=== PATIENT | female | born 1960 | race Caucasian/White ===

== ENCOUNTER 2018-07-02 22:55 | Emergency (ER) | payer BC, OTHER ==
[~2018-07-02] VITALS: Ht 28086.8 cm; Wt 90.9 kg
[~2018-07-02 22:55] MED LIST: HYDR-3686 PO; IBUP-1984 PO; OMEP-84 PO; ZIPR20CA2 PO
[2018-07-02] MEDS ORDERED: LORazepam 1 MG tablet PO ONE (23:20)
[2018-07-03 00:16] LABS: BASOPHILS # (AUTO) 0.1 X10'3 (0-0.2); BASOPHILS % (AUTO) 0.9 % (0-1); EOSINOPHILS # (AUTO) 0.1 X10'3 (0-0.9); EOSINOPHILS % (AUTO) 1.3 % (0-6); HEMATOCRIT 45.4 % (35.0-45.0); HEMOGLOBIN 14.6 g/dl (12.0-16.0); LYMPHOCYTES # (AUTO) 1.7 X10'3 (1.1-4.8); LYMPHOCYTES % (AUTO) 18.1 % (21-51); MEAN CORPUSCULAR HEMOGLOBIN 29.7 PG (27.0-31.0); MEAN CORPUSCULAR HGB CONC 32.2 % (33.0-36.5); MEAN CORPUSCULAR VOLUME 92.2 FL (78-98); MEAN PLATELET VOLUME 9.5 FL (7.4-10.4); MONOCYTES # (AUTO) 0.9 X10'3 (0-0.9); MONOCYTES % (AUTO) 9.4 % (2-12); NEUTROPHILS # (AUTO) 6.4 X10'3 (1.8-7.7); NEUTROPHILS % (AUTO) 70.3 % (42-75); PLATELET COUNT 253 X10'3 (140-440); RED BLOOD COUNT 4.92 X10'6 (4.20-5.60); RED CELL DISTRIBUTION WIDTH 13.8 % (11.5-14.5); WHITE BLOOD COUNT 9.2 X10'3 (4.5-11.0)
[2018-07-03 00:27] LABS: ALANINE AMINOTRANSFERASE 33 U/L (12-78); ALBUMIN 3.9 G/DL (3.4-5.0); ALBUMIN/GLOBULIN RATIO 1.1 (1.1-1.5); ALKALINE PHOSPHATASE 90 IU/L (46-116); ANION GAP 10 (8-16); ASPARTATE AMINO TRANSFERASE 29 U/L (10-37); BLOOD UREA NITROGEN 15 MG/DL (7-18); BUN/CREATININE RATIO 11.9 (6.6-38.0); CALCIUM 9.2 MG/DL (8.5-10.1); CHLORIDE 103 MMOL/L (99-107); CREATININE 1.26 MG/DL (0.40-0.90); GLUCOSE 119 MG/DL (70-104); POTASSIUM 3.8 MMOL/L (3.5-5.1); SODIUM 138 MMOL/L (135-145); TOTAL CARBON DIOXIDE 24.9 MMOL/L (24-32); TOTAL PROTEIN 7.6 G/DL (6.4-8.2); eGFR 44 ML/MIN
[2018-07-03 00:35] LABS: ETHANOL < 0.010 GM/DL (0.0-0.010)
[2018-07-03 00:41] LABS: ACETAMINOPHEN < 2.0 UG/ML (10-30)
[2018-07-03 00:59] LABS: URINE HCG NEGATIVE (NEG)
[2018-07-03 01:02] LABS: CLARITY,URINE CLEAR (Clear); COLOR,URINE YELLOW (Yellow); GLUCOSE, URINE NEGATIVE (Neg); KETONES,URINE NEGATIVE (Neg); LEUKOCYTE ESTERASE ,URINE NEGATIVE (Neg); NITRITES, URINE NEGATIVE (Neg); OCCULT BLOOD,URINE NEGATIVE (Neg); PH,URINE 5.5 (4.8-8.0); PROTEIN,URINE TRACE mg/dl (Neg)
[2018-07-03 01:14] LABS: URINE AMPHETAMINE SCREEN POSITIVE (Neg); URINE BARBITUATE SCREEN NEGATIVE (Neg); URINE BENZODIAZEPINES SCREEN NEGATIVE (Neg); URINE CANNABINOID SCREEN POSITIVE (Neg); URINE COCAINE SCREEN NEGATIVE (Neg); URINE METHADONE SCREEN NEGATIVE (Neg); URINE OPIATE SCREEN NEGATIVE (Neg); URINE PHENCYCLIDINE SCREEN NEGATIVE (Neg)
[2018-07-03 01:15] LABS: UA COLLECTION TYPE STRAIGHT CATH
[2018-07-03 01:16] LABS: BACTERIA,URINE FEW /HPF (Neg); RBC,URINE 0-2 /HPF (0-2); WBC,URINE 0-4 /HPF (0-4)
[2018-07-03 01:17] LABS: MUCUS STRANDS MODERATE /LPF (Neg); SQUAMOUS EPITHELIAL CELL,UR FEW /LPF (FEW)
[2018-07-03] MEDS ORDERED: haloperidol lactate 5mg/ml inj IM ONE (03:00)
[2018-07-03] MEDS ORDERED: LORazepam 2 mg/ml vial IM ONE (03:00)
[2018-07-03] MEDS ORDERED: TOPI100T18 PO (03:24)
[2018-07-03] MEDS ORDERED: ARIP20TA4 PO (03:24)
[2018-07-03] MEDS ORDERED: [UNRECOGNIZED DRUG - OTHER] PO (03:25)
[2018-07-03] MEDS ORDERED: ASPI-1265 PO (03:25)
[2018-07-03] MEDS ORDERED: LORA2TAB96 PO (06:00)
[2018-07-03] MEDS ORDERED: ZIPR20CA2 PO (20:18)
[2018-07-03] MEDS ORDERED: HYDR-3686 PO (20:18)
[2018-07-03] MEDS ORDERED: FURO-149 PO (20:18)
[2018-07-03] MEDS ORDERED: OMEP10SU2 PO (20:18)
[2018-07-03] MEDS ORDERED: hydrOXYzine 25 MG tablet PO PRN (20:40)
[2018-07-04] MEDS ORDERED: ibuprofen tablet 400 MG TABLET PO ONE (05:40)
[2018-07-04] MEDS ORDERED: LORazepam 2 mg/ml vial IM ONE (07:35)
[2018-07-04] MEDS ORDERED: diphenhydrAMINE 50 mg/ml inj IM ONE (07:35)
[2018-07-04] MEDS ORDERED: haloperidol lactate 5mg/ml inj IM ONE (07:35)
[2018-07-04] MEDS: topiramate 100mg tablet PO SCH (08:00)
[2018-07-04] MEDS: ziprasidone 20mg capsule PO SCH (08:00)
[2018-07-04] MEDS: aripiprazole 5mg tablet PO SCH (08:00)
[2018-07-04] MEDS: pantoprazole 40mg Tablet.DR PO SCH (08:23)
[2018-07-04] MEDS: aspirin 81mg tab.chew PO SCH (08:23)
[2018-07-04] MEDS: furosemide 40mg tablet PO SCH (08:23)
[2018-07-05] MEDS: ziprasidone 20mg capsule PO SCH (08:00)
[2018-07-05] MEDS: pantoprazole 40mg Tablet.DR PO SCH (09:14)
[2018-07-05] MEDS: aripiprazole 5mg tablet PO SCH (09:15)
[2018-07-05] MEDS: furosemide 40mg tablet PO SCH (09:16)
[2018-07-05] MEDS: aspirin 81mg tab.chew PO SCH (09:17)
[2018-07-05] MEDS: topiramate 100mg tablet PO SCH (09:32)
[2018-07-05 12:51] VITALS: BP 113/61
== END 2018-07-05 12:30 ==
LOC: ER 22:55
DX: F23 Brief psychotic disorder (principal); F41.9 Anxiety disorder, unspecified; F31.9 Bipolar disorder, unspecified; K21.9 Gastro-esophageal reflux disease without esophagitis; Z90.710 Acquired absence of both cervix and uterus; Z90.89 Acquired absence of other organs; Z88.5 Allergy status to narcotic agent; Z88.1 Allergy status to other antibiotic agents; Z88.0 Allergy status to penicillin; Z88.6 Allergy status to analgesic agent; Z79.82 Long term (current) use of aspirin; Z79.899 Other long term (current) drug therapy
CPT/HCPCS: 36415; 80053; 80178; 80305; 80320; 80329; 81001; 81025; 84443; 85025; 96372; 99285; J1630; J2060; Q0177

== ENCOUNTER 2018-09-24 12:35 | Emergency (ER) | payer OTHER ==
[~2018-09-24] VITALS: Ht 170.2 cm; Wt 90.0 kg
[~2018-09-24 12:35] MED LIST changes: +ARIP20TA4 PO; +ASPI-1265 PO; +FURO-149 PO; -IBUP-1984 PO; +LORA2TAB96 PO; -OMEP-84 PO; +OMEP10SU2 PO; +TOPI100T18 PO
[2018-09-24] MEDS ORDERED: ziprasidone IM 20mg inj **IM only IM ONE (12:45)
[2018-09-24 13:46] LABS: BASOPHILS % (AUTO) 0.4 % (0-1); EOSINOPHILS # (AUTO) 0.2 X10'3 (0-0.9); EOSINOPHILS % (AUTO) 2.8 % (0-6); HEMATOCRIT 44.7 % (35.0-45.0); HEMOGLOBIN 14.6 g/dl (12.0-16.0); LYMPHOCYTES # (AUTO) 1.8 X10'3 (1.1-4.8); LYMPHOCYTES % (AUTO) 23.3 % (21-51); MEAN CORPUSCULAR HEMOGLOBIN 30.4 PG (27.0-31.0); MEAN CORPUSCULAR HGB CONC 32.8 % (33.0-36.5); MEAN CORPUSCULAR VOLUME 92.9 FL (78-98); MONOCYTES # (AUTO) 0.7 X10'3 (0-0.9); MONOCYTES % (AUTO) 8.8 % (2-12); NEUTROPHILS % (AUTO) 64.7 % (42-75); PLATELET COUNT 260 X10'3 (140-440); RED BLOOD COUNT 4.81 X10'6 (4.20-5.60); WHITE BLOOD COUNT 7.8 X10'3 (4.5-11.0)
[2018-09-24 13:59] LABS: ALANINE AMINOTRANSFERASE 57 U/L (12-78); ALBUMIN 3.4 G/DL (3.4-5.0); ALKALINE PHOSPHATASE 88 IU/L (46-116); ANION GAP 10 (8-16); ASPARTATE AMINO TRANSFERASE 42 U/L (10-37); BILIRUBIN,TOTAL 0.7 MG/DL (0.1-1.0); BLOOD UREA NITROGEN 11 MG/DL (7-18); BUN/CREATININE RATIO 10.4 (6.6-38.0); CALCIUM 8.8 MG/DL (8.5-10.1); CHLORIDE 106 MMOL/L (99-107); CREATININE 1.06 MG/DL (0.40-0.90); GLUCOSE 116 MG/DL (70-104); POTASSIUM 3.8 MMOL/L (3.5-5.1); SODIUM 139 MMOL/L (135-145); TOTAL CARBON DIOXIDE 22.7 MMOL/L (24-32); TOTAL PROTEIN 6.8 G/DL (6.4-8.2); eGFR 54 ML/MIN
[2018-09-24 14:26] LABS: ETHANOL < 0.010 GM/DL (0.0-0.010)
[2018-09-24 17:46] LABS: URINE AMPHETAMINE SCREEN POSITIVE (Neg); URINE BARBITUATE SCREEN NEGATIVE (Neg); URINE BENZODIAZEPINES SCREEN NEGATIVE (Neg); URINE CANNABINOID SCREEN POSITIVE (Neg); URINE COCAINE SCREEN NEGATIVE (Neg); URINE METHADONE SCREEN NEGATIVE (Neg); URINE OPIATE SCREEN NEGATIVE (Neg); URINE PHENCYCLIDINE SCREEN NEGATIVE (Neg)
[2018-09-24] MEDS ORDERED: LORazepam 1 MG tablet PO PRN ×2 (19:45→22:45)
[2018-09-24] MEDS ORDERED: hydrOXYzine 25 MG tablet PO PRN ×2 (19:45→22:45)
[2018-09-25 05:39] VITALS: BP 100/67
[2018-09-25] MEDS ORDERED: pantoprazole 40mg Tablet.DR PO SCH ×2 (07:30→08:00)
[2018-09-25] MEDS ORDERED: topiramate 100mg tablet PO SCH ×2 (08:00)
[2018-09-25] MEDS ORDERED: aspirin 81mg tab.chew PO SCH ×2 (08:00→08:30)
[2018-09-25] MEDS ORDERED: aripiprazole 5mg tablet PO SCH ×2 (08:00)
[2018-09-25] MEDS ORDERED: furosemide 40mg tablet PO SCH ×2 (08:00)
[2018-09-25] MEDS ORDERED: ziprasidone 20mg capsule PO SCH ×2 (08:00)
== END 2018-09-25 12:17 | disposition home or self-care (01) ==
LOC: ER 12:35
DX: F29 Unspecified psychosis not due to a substance or known physiological condition (principal); K21.9 Gastro-esophageal reflux disease without esophagitis; F12.90 Cannabis use, unspecified, uncomplicated; F15.90 Other stimulant use, unspecified, uncomplicated; F41.9 Anxiety disorder, unspecified; F31.9 Bipolar disorder, unspecified; F41.0 Panic disorder [episodic paroxysmal anxiety]; Z85.038 Personal history of other malignant neoplasm of large intestine; Z90.49 Acquired absence of other specified parts of digestive tract; Z90.710 Acquired absence of both cervix and uterus; Z98.890 Other specified postprocedural states; Z88.5 Allergy status to narcotic agent; Z88.0 Allergy status to penicillin; Z88.1 Allergy status to other antibiotic agents; Z88.6 Allergy status to analgesic agent; Z88.8 Allergy status to other drugs, medicaments and biological substances; Z79.82 Long term (current) use of aspirin; Z79.899 Other long term (current) drug therapy
CPT/HCPCS: 36415; 80053; 80305; 80320; 85025; 96372; 99285; J3486; Q0177

== ENCOUNTER 2018-11-23 16:36 | Emergency (ER) | payer OTHER ==
[~2018-11-23] VITALS: Ht 167.6 cm; Wt 87.0 kg
[~2018-11-23 16:36] MED LIST changes: +TOP100T PO; -TOPI100T18 PO
[2018-11-23 16:40] VITALS: BP 122/83
[2018-11-23] MEDS ORDERED: LORazepam 1 MG tablet PO ONE (18:50)
[2018-11-23] MEDS ORDERED: LORazepam 0.5 MG tablet PO ONE (18:55)
--- NOTE | 2018-11-23 20:12 | NUR ---
while setting up room for sart exam and speaking to md louie about pt case and care pt left the hospital and stated to call her back pt has no phone number on file.
--- NOTE | 2018-11-23 20:15 | NUR ---
pt returned to registration window and decided she still wants to be seen
== END 2018-11-23 21:35 | disposition home or self-care (01) ==
LOC: ER 16:36 → EEVIPCON 16:36 → ER 21:35
DX: T74.21XA Adult sexual abuse, confirmed, initial encounter (principal); M54.2 Cervicalgia; M79.641 Pain in right hand; M54.9 Dorsalgia, unspecified; I27.20 Pulmonary hypertension, unspecified; K21.9 Gastro-esophageal reflux disease without esophagitis; M79.7 Fibromyalgia; Z85.038 Personal history of other malignant neoplasm of large intestine; Z90.710 Acquired absence of both cervix and uterus; Z98.890 Other specified postprocedural states; Z88.5 Allergy status to narcotic agent; Z88.0 Allergy status to penicillin; Z88.1 Allergy status to other antibiotic agents; Z88.6 Allergy status to analgesic agent; Z79.82 Long term (current) use of aspirin; Z79.899 Other long term (current) drug therapy
CPT/HCPCS: 99284